=== PATIENT | female | born 1985 | race Caucasian/White ===

== ENCOUNTER 2016-07-27 11:16 | Emergency (ER) | payer MEDICAID ==
[2016-07-27] MEDS ORDERED: HYDROmorphone HCL 1 MG/ML DISP.SYRIN IM ONE (11:52)
--- NOTE | 2016-07-27 11:59 | ERNOTE ---
ER Female HPI Stated Complaint: KIDNEY STONE Time Seen by Provider: 07/27/16 11:39 Immunizations: IMMUNIZATION HX Immunizations Up to Date Yes History of Influenza Vaccine Yes Hx Pneumococcal Vaccination No Allergies/Adverse Reactions: Allergies NSAIDS (Non-Steroidal Anti-Inflamma Allergy (Verified 07/27/16 11:38) STOMACH PROBLEMS tramadol Allergy (Verified 07/27/16 11:38) VOMITING, HEADACHE Home Medications: HOME MEDICATIONS ALPRAZolam [Xanax] 1 mg PO TID PRN 02/13/14 [Last Taken 07/17/14] Albuterol Sulfate [Ventolin Hfa] 2 puff IH Q4H PRN 02/13/14 [Last Taken Unknown] Desogestrel-Ethinyl Estradiol [Desogen] 1 each PO DAILY 02/13/14 [Last Taken ] SUMAtriptan SUCCINATE [Imitrex] 100 mg PO Q2H PRN 02/13/14 [Last Taken Unknown] Diphenoxylate HCl/Atropine [Lomotil Tablet] 2 each PO QID 07/13/14 [Last Taken 07/17/14] Omeprazole [Prilosec] 20 mg PO DAILY 08/21/14 [Last Taken Unknown] oxyCODONE HCL/ACETAMINOPHEN [Percocet 5 MG/325 MG] 1 tab PO Q4H PRN #30 tablet 08/21/14 [Last Taken Unknown] inFLIXimab [Remicade (INFLIXIMAB)] 100 mg IV Q60D 09/21/14 [Last Taken Unknown] Fluticasone Propionate [Flonase] 2 spray NS DAILY 11/22/15 [Last Taken Unknown] Ondansetron HCl [Zofran] 4 mg PO BID PRN 11/22/15 [Last Taken Unknown] Promethazine HCl [Phenergan Suppository] 25 mg RC Q6H PRN #20 supp.rect [Last Taken Unknown] Promethazine HCl [Phenergan (Promethazine)] 25 mg PO Q6H PRN #30 tablet [Last Taken Unknown] Loperamide HCl [Imodium] 2 mg PO PRN 07/27/16 [Last Taken Unknown] Tamsulosin HCl [Flomax] 0.4 mg PO DAILY@1800 #7 capsule 07/27/16 [Last Taken Unknown] - History of Present Illness Narrative: Patient presents with an exacerbation of her left flank kidney stone pain. She has a known kidney stone and has a office visit with urology in 3 days. Patient states because of her Crohn's disease that she cannot take any NSAIDs as it causes bleeding in the intestine. Timing: Present: constant Quality: Present: severe, cramping Onset Location: Present: left flank Radiation: Present: LLQ Activities at Onset: Present: none Prior Abdominal Problems: Present: other - kidney stone and renal colic Modifying Factors - (Improves): Present: analgesics Associated Symptoms: Present: denies symptoms Prior Treatment: Present: recently seen, treated by physician Review of Systems - Review of Systems Constitutional: Present: See HPI EYE: Present: no symptoms reported ENT: Present: no symptoms reported Respiratory: Present: no symptoms reported Cardiology: Present: no symptoms reported Gastrointestinal/Abdominal: Present: no symptoms reported Genitourinary: Present: other - left flank pain Musculoskeletal: Present: no symptoms reported Skin: Present: no symptoms reported Neurological: Present: no symptoms reported Endocrine: Present: no symptoms reported Hematologic/Lymphatic: Present: no symptoms reported Psych: Present: no symptoms reported - Patient's Past Medical History Patient History - Medical: Anxiety, Chronic Pain, Kidney stone, UTI'S, Other - Crohn's Disease Patient History - Cardiac/Respiratory: No pertinent hx Patient History - Cancer: No Hx of Cancer Patient History - Surgical Procedures: Colonoscopy, , EGD, Ear Tubes, T & A, Other Patient History - Other: None LMP (Calendar): 06/16/14 - Social History Living Situations: alone Abuse History: No History of abuse Psych History: Hx of Anxiety Smoking Status: Former smoker Have you smoked in the past 12 months: No Alcohol Use: rarely Drug Use: none - Immunizations Immunizations Up to Date: Yes Hx Pneumococcal Vaccination: No History of Influenza Vaccine: Yes Physical Exam - Physical Exam General Appearance: Present: wd/wn, alert, severe distress Eye Exam: Normal inspection: bilateral, PERRL: bilateral Ears, Nose, Throat: Present: normal ENT inspection, H, normal pharynx Neck: Present: normal inspection, nontender Respiratory: Present: no respiratory distress, normal breath sounds, no accessory muscle use, chest nontender, lungs clear Cardiovascular/Chest: Present: regular rate, rhythm, no murmur, normal peripheral pulses Gastrointestinal/Abdominal: Present: normal bowel sounds, nontender, nondistended, soft, no organomegaly Rectal Exam: Present: deferred Back Exam: Present: normal range of motion, CVA tenderness (L) Extremity Exam: Present: normal inspection, non-tender, no edema, normal range of motion Neurological Exam: Present: alert, oriented, normal mood/affect Skin Exam: Present: normal color, warm/dry Lymphatic Exam: Present: no adenopathy ED Progress - Results and Orders Patient's Lab Results:: I have reviewed the patient's lab results. - Vital Signs Patient's Vital Signs:: I have reviewed the patient's vital signs. Vital Signs: Vital Signs 07/27/16 11:32 Temperature 36.7 C Pulse Rate 92 Respiratory 14 Rate Blood Pressure 150/83 O2 Sat by Pulse 98 Oximetry - Progress/Reassessment Chief Complaint: Genitourinary Problem Progress:: Improved Plan - Plan Plan: Kateryna was always going to be a difficult patient to manage due to the underlying Crohn's disease. We'll provide her with a prescription for Flomax and she has Percocet at home already. She has appointment with urology in 3 days which she agrees to keep. She has requested several days off to help manage the pain at home and we will assist her in that. She is discharged in stable condition Departure Clinical Impression: Renal colic on left side Crohn disease Qualifiers: Gastrointestinal tract location: unspecified location Digestive disease complication type: without complication Qualified Code(s): K50.90 - Crohn's disease, unspecified, without complications - Departure Disposition: Home self-care Condition: Good Instructions: Renal Colic, Bklw-on-Bpst, Crohn Disease Referrals: Prince Gauthier DO [Primary Care Provider] - Prescriptions: Tamsulosin HCl [Flomax] 0.4 mg PO DAILY@1800 #7 capsule
[2016-07-27] MEDS ORDERED: HYDROmorphone HCL 1 MG/ML DISP.SYRIN ONE (12:07)
--- OUTSIDE RECORDS SUMMARY | 2016-07-27 12:11 | XMS REPORT | Continuity of Care Document ---
:1985 Author Organization [facility] ([facility]) Address [address] [place] [address] Phone [phone] Care Team Providers Name Role Phone Prince Gauthier Primary Care Provider [phone] Source Comments This disclosure is being made pursuant to the Care Everywhere program, applicable federal and state laws, and may not contain all informaitonavailable regarding this patient.[facility] ([facility]) Active Allergies and Adverse Reactions Allergen Noted Date Severity Reactions Comments Hydrocodone-Acetaminophen 08/20/2015 Nausea & Vomiting Nsaids (Non-Steroidal 02/20/2015 Nausea & Vomiting Anti-Inflammatory Drug) Tramadol 08/20/2015 Nausea & Vomiting Current Medications Prescription Sig. Disp. Refills Start End Date Status Date albuterol 90 Use 2 Puffs by Active mcg/Actuation inhalation every 6 inhaler hours as needed. desogestrel-ethiny Take 1 Tab by Active l estradiol mouth daily. (DESOGEN) tablet SUMAtriptan 100 mg Take 100 mg by Active tablet mouth daily as needed. May repeat in 2 hours if needed. ALPRAZolam 1 mg Take 1 mg by mouth Active tablet 3 times daily. INFLIXIMAB Inject 5 mg/kg Active (REMICADE IV) intravenously. Every 7 weeks OXYCODONE-ACETAMIN Take 1 Tab by 0 Active OPHEN 5-325 mg per mouth as needed 5 tablet FLUTICASONE 50 Use 2 Sprays into 11 Active mcg/Actuation both nostrils 5 nasal spray daily acetaminophen 500 Take 1,000 mg by Active mg tablet mouth 2 times daily as needed. loperamide 2 mg Take 1-2 capsules 120 capsule 5 Active capsule (2-4 mg total) by 6 mouth 4 times daily as needed for Diarrhea. montelukast 10 mg Take 10 mg by 5 Active tablet mouth every 6 evening. promethazine 25 mg Take 1 tablet (25 90 tablet 5 Active tablet mg total) by mouth 7 3 times daily as needed. polyethylene Mix with Gatorade 510 g 0 Active glycol 3350 as directed per 7 (MIRALAX) 17 prep instructions gram/dose powder 1 day prior to procedure baclofen 20 mg Take 1 tablet (20 90 tablet 3 Active tablet mg total) by mouth 7 3 times daily as needed. lidocaine 5 % Apply 1 35 g 3 Active ointment application 7 topically as needed. colestipol 1 gram Take 1 tablet (1 g 60 tablet 5 Active tablet total) by mouth 2 7 times daily. ondansetron 4 mg Take 1-2 tablets 15 tablet 5 Active tablet (4-8 mg total) by 7 mouth every 8 hours as needed. valACYclovir 500 Take 500 mg by Active mg tablet mouth 2 times 7 daily. Two BID for 3 days terconazole 0.8 % 1 Applicatorful as Active vaginal cream needed. 7 omeprazole 20 mg Take 20 mg by Active enteric coated mouth daily. 7 capsule diphenoxylate-atro Take 1-2 tablets 120 tablet 3 Active pine 2.5-0.025 mg by mouth 4 times 7 per tablet daily as needed. diphenoxylate-atro Take 1-2 tablets 120 tablet 3 07/07/19 Discontinued pine 2.5-0.025 mg by mouth 4 times 6 17 per tablet daily as needed. Active Problems Problem Noted Date High risk medication use 02/15/2015 Crohn's disease 08/11/2014 Overview: Formatting of this note may be different from the original. Crohn's Disease Assessment and Quality Measures: 1. Disease phenotype: Crohn's disease diagnosed in 2014 at age 28. Disease involving the ileum. Surgical history: none. [place] Classification: A2 L1 B1 2. Genetics/Markers: Fhx of IBD: maternal aunt with Crohn's disease. Fhx of CRC: none. Fhx of Celiac Dz: none. Serology/Genotype hx: none. 3. Medication History: Use of corticosteroid sparing therapy: Yes - currently on Infliximab. Trial of Budesonide when initially diagnosed in 09/2013, discontinued due to lock jaw and bulging eyes Trial of Azathioprine from 09/2013 - 10/2013, discontinued due to nausea Trial of 6-Mercaptopurine from 10/2013 - 11/2013, discontinued due to nausea Trial of Adalimumab from 11/2013 - 07/2014, discontinued due to lack of response with biweekly dosing (low trough and no antibodies) and insurance would not approve weekly dosing Started Infliximab infusions at 5 mg/kg on 07/2014 Increased Infliximab dose to 7 mg/kg on 09/2014 due to incomplete reponse Trial of Hydrocortef infusion pre-med on 10/2014 to prevent antibody formation and post-infusion rash, discontinued after one infusion due to post- infusion headache Increased Infliximab infusion frequency to every 6 weeks on 12/2014 Decreased Infiximab infusion frequency to every 7 weeks on 03/2015. Positive C diff screen on 12/2015 requiring 2 rounds of Vancomycin. Infliximab infusion increased to 10 mg/kg and infusion speed cut in half due to possible adverse reactions (flushing and nausea). NSAID use: no - knows to avoid NSAIDs, currently taking oxycodone PRN basis (family medicine provider). Laboratory monitoring arranged if on immune modulator: Yes - No results found for: [id number], [id number] Lab Results Component Value Date/Time INFLIXIMAB ACTIVITY 27.42 03/10/2016 10:48 AM INFLIXIMAB NEUTRALIZING ANTIBODY TITER Not Detected 03/10/2016 10:48 AM 4. Extra Intestinal Manifestations: Pruritic rash on posterior upper and lower extremities that develops just prior to her flares. 5. Last Colonoscopy: 02/2015: Healing terminal ileum mucosa with very mild inflammation, normal colon and rectum, no granulomas or dysplasia noted. 6. Last Small Bowel Imagin06/2014, CT enterography: subacute to mildly active Crohn's disease involving the TI and hepatomegaly noted. 02/2013, small bowel series: negative. 7. Last Ultrasound: 08/2013, RUQ US: outside study showed fatty liver, no gallstones, and limited view of the pancreas 8. Last EGD: 01/2013: outside study showed mild gastritis and small sliding hiatal hernia. Biopsies showed minimal chronic inflammation with erosive features of the antrum and no significant pathologic changesin the duodenum. 9. Thiopurine & Biologic Pre-Treatment Testing: TPMT Enzyme Activity Tested: Yes - see below. TB Testing: Yes - see below. Lab Results Component Value Date/Time THIOPURINE METHYLTRANSFERASE 29.0 10/18/2013 09:35 AM QUANTIFERON-TB GOLD Negative 12/06/2013 03:33 PM HEP B SURFACE ANTIGEN Negative 12/06/2013 03:33 PM HEP B SURFACE AB, QUANTITATIVE <3.5 12/06/2013 03:33 PM HEP B SURFACE AB, QUALITATIVE Non Reactive* 12/06/2013 03:33 PM HEP B CORE ABS TOTAL (IGG & IGM) Negative 12/06/2013 03:33 PM HEPATITIS C VIRUS ANTIBODY Negative 12/06/2013 03:33 PM 10. Celiac Disease Serology: Lab Results Component Value Date/Time TTG IGA, QUANTITATIVE <0.5 10/18/2013 09:35 AM 11. Nutrition: Lab Results Component Value Date/Time VITAMIN B12 248 01/08/2016 12:20 PM VITAMIN D, 25-OH 33 01/08/2016 12:20 PM ALBUMIN 3.7 05/08/2016 12:08 PM HEMOGLOBIN 13.1 05/08/2016 12:08 PM IRON, BLOOD 153* 03/10/2016 10:48 AM TRANSFERRIN 349 03/10/2016 10:48 AM IRON % SATURATION 31 03/10/2016 10:48 AM FERRITIN 128.6 03/10/2016 10:48 AM SOLUBLE TRANSFERRIN RECEPTOR 2.3 03/10/2016 10:48 AM TRANSFERRIN RECEPTOR-FERRITIN INDEX 1.1 03/10/2016 10:48 AM 12. Tobacco Usage: Cessation discussion this visit: Not Applicable History Smoking status Never Smoker Smokeless tobacco Never Used 13. IBD Related Health Maintenance: Surveillance Colonoscopy: Next due now due to change in bowel habit unexplained by eradication of C diff and appropriate Infliximab levels. Risk Factor Score: 0 Last Bone Density Test: none. Last Pap Smear: abnormal pap on 03/2014, LEEP in 06/2014 normal, 2 subsequent normal colposcopies, paps every 6 months Annual Skin Exams: No - derm referral placed today. PHQ-2 Score: Positive. Pt has been encouraged to discuss this with her PCP. Immunizations: -- Counseled on the use of live vaccines: yes -- Chickenpox/Varicella infection or immunization: yes - Childhood infection No results found for: VZSCQNT -- Influenza vaccination or recommendation: Unknown -- PCV13 vaccination or recommendation: Vaccinated - per pt. -- PPSV23 vaccination or recommendation: Vaccinated - per pt. Immunization History Administered Date(s) Administered Influenza, unspecified 12/27/2014 Pneumococcal, unspecified 12/27/2014 14. Other: Hx of C. Diff: yes - 12/2015 requiring two 14-day courses of Vancomycin. Hx of DVT: none. Hx of Lymphoma: none. Hx of Nephrolithiasis: yes - 2014 with stent placement. Hx of Cholelithiasis: none. 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) 07/04/2016 Refill Med GI/Hepatology Mk Clarke Dx: Diarrhea (Primary Dx) 06/27/2016 Orders Only Med GI/Hepatology Mavis Don ARNP 06/19/2016 Office Visit Med GI/Hepatology Manuel Oneal Dx: Crohn's disease of small intestine Ismael, with other Hema Pinon PA-C complication (Primary Dx) 06/06/2016 Office Visit [facility] Hema Oneal Dx: Crohn's darcy Tipton PA-C of small intestine with other complication (Primary Dx) 06/04/2016 [facility] Med GI/Hepatology [facility], Subj: Appointment Encounter MD Galo Canceled 05/28/2016 Hospital Radiology Subj: Appointment Encounter Scheduled 05/28/2016 Office Visit Anesthesiology John Alarcon, Dx: Chronic left shoulder pain 2, Pain Clinic (Primary Dx) Provider 05/13/2016 Office Visit Anesthesiology 2, Pain Clinic Subj: Appointment Provider Scheduled 05/08/2016 Office Visit Pathology Manuel Oneal, Dx: Crohn's disease involving terminal Lab Services, Irl ileum 05/08/2016 Orders Only Pathology Garrett Chaparro Dx: Crohn's disease J involving terminal ileum 05/05/2016 Office Visit Med GI/Hepatology Manuel Oneal, Dx: Crohn's disease involving terminal Guevara, ileum (Primary Dx) Hema Pinon PA-C 05/05/2016 Telephone Med GI/Hepatology Mk Clarke Chief Comp: Need Prior Authorization Immunizations Name Dates Previously Given Next Due Hepatitis B, adult 12/27/2013 Hepatitis B, pediatric/adolescent 04/26/2014 Influenza, unspecified 12/27/2014 Pneumococcal Conjugate, PCV13 (Prevnar 13) 12/27/2014 Pneumococcal Polysaccharide, PPSV23 (Pneumovax 23) 12/27/2013 Social History Tobacco Use Types Packs/Day Years Used Date Never Smoker Smokeless Tobacco: Never Used Tobacco Cessation:Counseling Given: Yes Comments: Alcohol Use Drinks/Week oz/Week Comments No 1 Standard drinks or equivalent 0.5 rare Last Filed Vital Signs Vital Sign Reading Time Taken Blood Pressure 106/72 07/25/2016 12:15 PM CDT Pulse 82 07/25/2016 9:52 AM CDT Temperature 36.9 C (98.4 F) 07/25/2016 9:52 AM CDT Respiratory Rate 16 07/25/2016 12:15 PM CDT Height 1.651 m (5' 5") 07/25/2016 9:52 AM CDT Weight 135.1 kg (297 lb 13.5 oz) 07/25/2016 9:52 AM CDT Body Mass Index 49.56 07/25/2016 9:52 AM CDT Oxygen Saturation 100% 06/06/2016 10: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 Plan of Care Date Type Specialty Providers Description 08/06/2016 Hospital Encounter Med GI/Hepatology Fox, Subj: Appointment MD Ye Scheduled [address] [place] [address] [phone] (Fax) 08/19/2016 Appointment Med GI/Hepatology Manuel Oneal MD [address] [place] [address] [phone] (Fax) Subj: Appointment Hema Guevara PA-C [address] [place] [address] [phone] (Fax) Scheduled 08/28/2016 Appointment Anesthesiology 1, Pain Clinic Subj: Appointment Provider Scheduled 09/03/2016 Appointment [facility] Manuel Oneal, Subj: Appointment MD Scheduled [address] [place] [address] [phone] (Fax) Health Maintenance Due Date Last Done Comments Tdap Vaccine 09/04/1994 Lipid Disorder Screening 09/04/2001 MMR Vaccine 09/04/2001 Td Vaccine 09/04/2001 Varicella Vaccine (1 of 2 - Adult - No 09/04/2001 Evidence of Immunity) Cervical Cancer Screening 09/04/2013 Hepatitis B Vaccine (3 of 3 - Primary 06/21/2014 04/26/2014, 12/27/2013 Series) Influenza Vaccine: Seasonal (Season Ended) 2016 12/27/2014 Results from Last 3 Months PAIN SUPRASCAPULAR NERVE (05/28/2016 12:18 PM) Narrative John Alarcon MD 05/28/20161:07 PM ANE PAIN Procedure Note Procedure Date: 05/28/2016 Consent Obtained: After reviewing the potential risks and benefits as well as the performance of the procedure with the patient, an informed written consent was obtained. Pre-operative Diagnosis: Left shoulder pain Post-operative Diagnosis: Left shoulder pain Attending Staff: John Alarcon MD Resident/Fellow: Jeremias Gomez DO Indications: Left shoulder pain PAIN SUPRASCAPULAR NERVE Left suprascapular nerve block The patient was placed in a prone position. The patient was monitored using electrocardiogram, noninvasive blood pressure and pulse oximeter. The skin was prepped with chloraprep, and sterile drapes were applied. The left suprascapular notch was identified under fluoroscopy. A skin wheal was created using 1 cc of 1% lidocaine. A 22-gauge, 3.5 inch needle was then advanced toward the suprascapular notch until it hit bone. 0.5 cc of omnipaque 300 was injected following negative aspiration for heme or air. The notch and spine of the scapula was outlined. Then, A total of 2cc of 0.50% Bupivacaine with 10mg of Dexamethasone was injected, then needle was removed. The patient was discharged in stable condition Pre-procedure pain score: 7 Post-procedure pain score: 5 Photographs: in [facility] Complications: The patient did not experience any complications. Teaching Statement: John Alvarez MD was present for the entire procedure I was present for the entire procedure. John Alarcon MD [facility] Clinical Cylinder Die Machine Helper Department of Anesthesia, Division of Chronic Pain Management Pager [phone] PANCREATIC ELASTASE, MONOCLONAL (05/08/2016 12:15 PM) Component Value Range Pancreatic Elastase, Monoclonal >500Comment: >200 mcg PE1/g stool In [facility], find scanned test results by clicking the Results Document hyperlink on the Order Report. For [facility] user the scan result report is not available, please contact physician for details. Specimen Stool CALPROTECTIN, FECAL (05/08/2016 12:15 PM) Component Value Range Calprotectin, Fecal 36Comment: <=50 ug/g INTERPRETIVE INFORMATION: Calprotectin, Fecal 50 ug/g or less: Normal 51-120 ug/g: Borderline elevated, test should be re-evaluated in 4-6 weeks. 121 ug/g or greater: Abnormal Performed by [facility], [address] [place] [id number] [email or web address], Praful Womack MD, Lab. Director Specimen Stool Narrative Source: STOOL Client Accession number: [id number] C. DIFFICILE TOXIN SCREEN (05/08/2016 12:15 PM) Component Value Range C. Difficle GDH Negative Negative C. Difficile Toxin NegativeComment: Negative Negative for the presence of C. difficile and C. difficile toxin. Specimen Stool DIFFERENTIAL (05/08/2016 12:08 PM) Component Value Range % Neutrophils-Auto Diff 44.5 % Neutrophils-Auto Diff 3060 6936-8577 /MM3 % Lymphocytes-Auto Diff 45.5 % Lymphocytes-Auto Diff 3130 875-3300 /MM3 % Monocytes-Auto Diff 7.6 % Monocytes-Auto Diff 520 130-860 /MM3 % Eosinophils-Auto Diff 1.7 % Eosinophils-Auto Diff 120 40-390 /MM3 % Basophils 0.6 % Basophils-Auto Diff 40 10-136 /MM3 % Immature Granulocytes-Auto Diff 0.1 % Immature Granulocytes-Auto Diff 10 /MM3 Specimen Whole Blood CBC (COMPLETE BLOOD COUNT) (05/08/2016 12:08 PM) Component Value Range WBC Count 6.9 3.7-10.5 K/MM3 RBC Count 4.28 4.00-5.20 M/MM3 Hemoglobin 13.1 11.9-15.5 g/dL Hematocrit 40 35-47 % MCV (Mean Corpuscular Volume) 94 82-99 FL MCH (Mean Corpuscular Hemoglobin) 31 25-35 PG MCHC (Mean Corpuscular Hemoglobin Concentration) 32 32-36 % Platelet Count 319 150-400 K/MM3 MPV (Mean Platelet Volume) 9.2(L) 9.4-12.3 FL RBC Dist Width-STD 40.9 36.4-46.3 FL RBC Distrib Width 12.1 9.0-14.5 % Specimen Whole Blood TRYPTASE, TOTAL (05/08/2016 12:08 PM) Component Value Range Tryptase 4.5Comment: <=10.9 ug/L Performed by [facility], [address] [place] [phone] [email or web address], Praful Womack MD, Lab. Director Specimen Blood Narrative Source: BLOOD Client Accession number: [id number] C-REACTIVE PROTEIN (05/08/2016 12:08 PM) Component Value Range CRP (C-Reactive Protein) 0.7(H) <=0.5 mg/dL Specimen Blood ERYTHROCYTE SEDIMENTATION RATE (05/08/2016 12:08 PM) Component Value Range ESR (Erythrocyte Sedimentation Rate) 14 0-20 mm/Hr Specimen Whole Blood HEPATIC FUNCTION PANEL (05/08/2016 12:08 PM) Component Value Range Albumin 3.7 3.4-4.8 g/dL ALP 54 35-104 U/L Bilirubin Total 0.3 <=1.2 mg/dL Bilirubin, Direct <0.2 0.0-0.2 mg/dL AST 15Comment: 0-32 U/L Adult reference ranges updated on 02/22/13 at 830am ALT 12Comment: 0-33 U/L The upper limit of normal for alanine aminotransferase (ALT) reference ranges for adults is controversial with some authorities recommending limit as low as 30 U/L for males and 19 U/L for females. Th ere is increased incidence of subclinical liver disease (e.g., early steatohepatitis) in patients with ALT values in the range of 31-41 U/L for males and 20-33 U/L for females. ALT values should alway s be interpreted in conjunction with clinical history, physical examination findings, and, if applicable, data from other diagnostic tests. Total Protein 7.0 6.0-8.0 g/dL Specimen Blood CBC WITH DIFFERENTIAL (05/08/2016 12:08 PM) Specimen Whole Blood Narrative The following orders were created for panel order CBC WITH DIFFERENTIAL. Procedure Abnormality Status --------- ------ CBC (COMPLETE BLOOD COUNT)[[id number]] AbnormalFinal result DIFFERENTIAL[[id number]] Final result Please view results for these tests on the individual orders.
[2016-07-27 12:27] LABS: Urine Bilirubin Negative (NEGATIVE); Urine Blood 250 /ul (NEGATIVE); Urine Ketone Negative (NEGATIVE); Urine Nitrite Negative (NEGATIVE); Urine Protein Negative (NEGATIVE); Urine Specific Gravity >=1.030 SP.GR. (1.005-1.010); Urine Urobilinogen Normal (NORMAL)
[2016-07-27 12:46] LABS: Urine Appearance Clear; Urine Bacteria None Seen; Urine Color Yellow; Urine RBC 0-5 /hpf (0-5); Urine WBC None Seen /hpf (0-5)
[2016-07-27 12:56] VITALS: BP 167/80
== END 2016-07-27 13:00 | disposition home or self-care (01) ==
LOC: ER 11:16
DX: N23 Unspecified renal colic (principal); K50.90 Crohn's disease, unspecified, without complications; F41.9 Anxiety disorder, unspecified

== ENCOUNTER 2016-10-02 11:13 | Emergency (ER) | payer MEDICAID ==
[2016-10-02 11:49] LABS: Hematocrit 36.7 % (37.0-47.0); Hemoglobin 12.5 gm/dL (12.5-16.0); Mean Cell Volume 90.6 fl (78-100); Mean Corpuscular Hemoglobin 30.9 pg (27-31); Mean Corpuscular Hgb Conc 34.1 g/dl (32-36); Mean Platelet Volume 8.8 fl (6.0-9.5); Neutrophil # 2.8 K/mm3 (1.3-6.0); Neutrophil % 40.7 % (42-75.0); Platelet Count 370 K/mm3 (150-450); Red Blood Count 4.05 M/mm3 (4.2-5.4); White Blood Count 6.8 K/mm3 (4.0-10.5)
[2016-10-02 11:58] LABS: Prothrombin Time (Patient) 9.9 Seconds (9.4-11.4)
[2016-10-02 12:00] LABS: Albumin * 3.2 gm/dl (3.4-5.0); Anion Gap 15.1 mmol/L (6.8-13.8); BUN/Creatinine Ratio 13.8 (9.0-21.6); Bilirubin, Total 0.2 mg/dL (0.0-1.1); Ca. Corrected For Albumin 9.1 mg/dL (8.4-10.2); Calcium * 8.8 mg/dL (7.9-10.9); Carbon Dioxide 25.6 mmol/L (24-32.6); Potassium 3.7 mmol/L (3.4-4.6); Total Protein 7.3 gm/dL (6.2-8.2)
[2016-10-02 12:02] LABS: INR 0.95 INR (0.90-1.10)
[2016-10-02] MEDS ORDERED: LIDOCAINE HCL 10 APPL CARTRIDGE TP ONE (12:24)
[2016-10-02] MEDS ORDERED: LIDOCAINE HCL 10 APPL CARTRIDGE ONE (12:35)
--- NOTE | 2016-10-02 12:54 | ERNOTE ---
GI Bleeding/Rectal Pain ER Date of Service: 10/02/16 Time Seen by Provider: 10/02/16 12:14 Immunizations: IMMUNIZATION HX Immunizations Up to Date Yes History of Influenza Vaccine No Hx Pneumococcal Vaccination No Allergies/Adverse Reactions: Allergies NSAIDS (Non-Steroidal Anti-Inflamma Allergy (Verified 10/02/16 11:29) STOMACH PROBLEMS tramadol Allergy (Verified 10/02/16 11:29) VOMITING, HEADACHE Home Medications: HOME MEDICATIONS ALPRAZolam [Xanax] 1 mg PO TID PRN 02/13/14 [Last Taken 07/17/14] Albuterol Sulfate [Ventolin Hfa] 2 puff IH Q4H PRN 02/13/14 [Last Taken Unknown] Desogestrel-Ethinyl Estradiol [Desogen] 1 each PO DAILY 02/13/14 [Last Taken ] SUMAtriptan SUCCINATE [Imitrex] 100 mg PO Q2H PRN 02/13/14 [Last Taken Unknown] Diphenoxylate HCl/Atropine [Lomotil Tablet] 2 each PO QID 07/13/14 [Last Taken 07/17/14] Omeprazole [Prilosec] 20 mg PO DAILY 08/21/14 [Last Taken Unknown] oxyCODONE HCL/ACETAMINOPHEN [Percocet 5 MG/325 MG] 1 tab PO Q4H PRN #30 tablet 08/21/14 [Last Taken Unknown] inFLIXimab [Remicade (INFLIXIMAB)] 100 mg IV Q60D 09/21/14 [Last Taken Unknown] Fluticasone Propionate [Flonase] 2 spray NS DAILY 11/22/15 [Last Taken Unknown] Ondansetron HCl [Zofran] 4 mg PO BID PRN 11/22/15 [Last Taken Unknown] Promethazine HCl [Phenergan Suppository] 25 mg RC Q6H PRN #20 supp.rect [Last Taken Unknown] Promethazine HCl [Phenergan (Promethazine)] 25 mg PO Q6H PRN #30 tablet [Last Taken Unknown] Loperamide HCl [Imodium] 2 mg PO PRN 07/27/16 [Last Taken Unknown] Tamsulosin HCl [Flomax] 0.4 mg PO DAILY@1800 #7 capsule 04/30/17 [Last Taken Unknown] Docusate Sodium [Colace] 100 mg PO DAILY #30 cap 10/02/16 [Last Taken Unknown] Hydrocortisone Acetate [Anusol Hc Suppository] 25 mg RC BID #28 supp.rect [Last Taken Unknown] Lidocaine HCl [Lidocaine Jelly] 1 appl RC QID #2 cartridge 10/02/16 [Last Taken Unknown] Narrative: Pt. comes ion with c/o rectal bleeding after she had a BM this morning. Pt. denies any SOB, CP, NVD, fever, recent illness, abd pain, alleviating factors but states tath movement exacerbates the pain. Pt. has a a history of this previously but has been diagnosed differently each time so she unsure if it is her chrohn's disease, hemorrhoids, and an anal fissure. Review of Systems - Review of Systems Constitutional: Present: no symptoms reported. Absent: recent illness, fever, chills, weakness, fatigue, malaise EYE: Present: no symptoms reported ENT: Present: no symptoms reported Respiratory: Present: no symptoms reported. Absent: shortness of breath, cough , wheezing Cardiology: Present: no symptoms reported. Absent: chest pain, palpitations, edema Gastrointestinal/Abdominal: Present: other - rectal pain and bleeding. Absent: nausea, vomiting, diarrhea Genitourinary: Present: no symptoms reported Musculoskeletal: Present: no symptoms reported. Absent: back pain, joint pain Skin: Present: no symptoms reported. Absent: rash, change in color Neurological: Present: no symptoms reported. Absent: headache, dizziness/light- headedness, numbness, tingling Endocrine: Present: no symptoms reported Hematologic/Lymphatic: Present: no symptoms reported - Patient's Past Medical History Patient History - Medical: Anxiety, Chronic Pain, Kidney stone, UTI'S, Other Patient History - Cardiac/Respiratory: No pertinent hx Patient History - Cancer: No Hx of Cancer Patient History - Surgical Procedures: Colonoscopy, , EGD, Ear Tubes, Total Knee Replacement, T & A, Other Patient History - Other: None LMP (females 10-50): 3 weeks LMP (Calendar): 09/10/16 - Social History Living Situations: home Abuse History: No History of abuse Psych History: Hx of Anxiety Alcohol Use: rarely Drug Use: none - Immunizations Immunizations Up to Date: Yes Hx Pneumococcal Vaccination: No History of Influenza Vaccine: No Physical Exam - Physical Exam General Appearance: Present: wd/wn, alert, no apparent distress Eye Exam: Normal inspection: bilateral, PERRL: bilateral, EOMI: bilateral Respiratory: Present: no respiratory distress, normal breath sounds, no accessory muscle use, chest nontender, lungs clear Cardiovascular/Chest: Present: regular rate, rhythm, no murmur, normal peripheral pulses Rectal Exam: Present: tenderness, hemorrhoids - posterior skin tag Back Exam: Present: normal inspection Extremity Exam: Present: normal inspection, non-tender, normal range of motion, no edema Neurological Exam: Present: alert, oriented, normal mood/affect, no motor/ sensory deficits ED Progress - Date and Time Seen: Date and Time: 10/02/16 12:[address] Barry and he recommends steroidal suppositories, stool softeners, and marcaine jelly and she is to follow up with Dr Blakely next week. - Vital Signs Vital Signs: Vital Signs 10/02/16 10/02/16 11:26 12:00 Temperature 36.4 C L Pulse Rate 96 98 Respiratory 16 16 Rate Blood Pressure 153/92 152/80 O2 Sat by Pulse 97 97 Oximetry - Progress/Reassessment Chief Complaint: GI Bleed Departure Clinical Impression: Anal fissure Hemorrhoids Qualifiers: Hemorrhoid type: residual hemorrhoidal skin tags Qualified Code(s): K64.4 - Residual hemorrhoidal skin tags - Departure Disposition: Home self-care Condition: Good Instructions: Hemorrhoids, [id number], Anal Fissure, Adult, [id number], How to Take a Sitz Bath Additional Instructions: Please follow up with Dr Reed early next week for appointment. Referrals: Prince Gauthier DO [Primary Care Provider] - Prescriptions: Docusate Sodium [Colace] 100 mg PO DAILY #30 cap Hydrocortisone Acetate [Anusol Hc Suppository] 25 mg RC BID #28 supp.rect Lidocaine HCl [Lidocaine Jelly] 1 appl RC QID #2 cartridge
[2016-10-02 14:15] VITALS: BP 156/81
== END 2016-10-02 13:07 | disposition home or self-care (01) ==
LOC: ER 11:13
DX: K64.4 Residual hemorrhoidal skin tags (principal); K60.0 Acute anal fissure

== ENCOUNTER 2017-01-16 17:15 | Emergency (ER) | payer MEDICAID ==
[2017-01-16] MEDS ORDERED: ONDANSETRON HCL/PF 2 MG/ML VIAL IV ONE (17:52)
[2017-01-16] MEDS ORDERED: NORMAL SALINE 1,000 ML IV ONE (17:53)
[2017-01-16 18:19] LABS: Hemoglobin 15.5 gm/dL (12.5-16.0); Mean Cell Volume 93.6 fl (78-100); Mean Corpuscular Hemoglobin 30.9 pg (27-31); Mean Platelet Volume 9.1 fl (6.0-9.5); Neutrophil % 61.1 % (42-75.0); Platelet Count 379 K/mm3 (150-450); Red Blood Count 5.02 M/mm3 (4.2-5.4); Red Cell Distribution Width 12.4 % (11.5-14.0); White Blood Count 11.5 K/mm3 (4.0-10.5)
[2017-01-16 18:39] LABS: BUN/Creatinine Ratio 11.4 (9.0-21.6); Bilirubin, Total 0.3 mg/dL (0.0-1.1); Ca. Corrected For Albumin 9.2 mg/dL (8.4-10.2); Calcium * 9.5 mg/dL (7.9-10.9); Carbon Dioxide 19.6 mmol/L (24-32.6); Potassium 3.6 mmol/L (3.4-4.6); Total Protein 8.8 gm/dL (6.2-8.2)
[2017-01-16 18:49] LABS: Urine Appearance Slightly Cloudy; Urine Bilirubin Negative (NEGATIVE); Urine Blood 250 /ul (NEGATIVE); Urine Color Yellow; Urine Ketone 15 mg/dL (NEGATIVE); Urine Nitrite Negative (NEGATIVE); Urine Protein Negative (NEGATIVE); Urine Urobilinogen Normal (NORMAL); Urine WBC 0-5 /hpf (0-5)
[2017-01-16 18:50] LABS: Urine Bacteria TRACE; Urine RBC TRACE /hpf (0-5)
[2017-01-16] MEDS ORDERED: ONDANSETRON 4 MG TAB.RAPDIS ONE (18:50)
[2017-01-16] MEDS ORDERED: ONDANSETRON 4 MG TAB.RAPDIS PO ONE (18:51)
--- NOTE | 2017-01-16 20:06 | ERNOTE ---
Medical Problem HPI - Narrative Date of Service: 01/16/17 - General Chief Complaint: Nausea/Vomiting Time Seen by Provider: 01/16/17 17:33 Source: patient Exam Limitations: no limitations - Immun/Allergies/Home Medications Immunizations: IMMUNIZATION HX Immunizations Up to Date Yes History of Influenza Vaccine No Hx Pneumococcal Vaccination No Allergies/Adverse Reactions: Allergies NSAIDS (Non-Steroidal Anti-Inflamma Allergy (Verified 01/16/17 17:25) STOMACH PROBLEMS tramadol Allergy (Verified 01/16/17 17:25) VOMITING, HEADACHE Home Medications: HOME MEDICATIONS ALPRAZolam [Xanax] 1 mg PO TID PRN 02/13/14 [Last Taken 07/17/14] Albuterol Sulfate [Ventolin Hfa] 2 puff IH Q4H PRN 02/13/14 [Last Taken Unknown] Desogestrel-Ethinyl Estradiol [Desogen] 1 each PO DAILY 02/13/14 [Last Taken ] SUMAtriptan SUCCINATE [Imitrex] 100 mg PO Q2H PRN 02/13/14 [Last Taken Unknown] Diphenoxylate HCl/Atropine [Lomotil Tablet] 2 each PO QID 07/13/14 [Last Taken 07/17/14] Omeprazole [Prilosec] 20 mg PO DAILY 08/21/14 [Last Taken Unknown] oxyCODONE HCL/ACETAMINOPHEN [Percocet 5 MG/325 MG] 1 tab PO Q4H PRN #30 tablet 08/21/14 [Last Taken Unknown] inFLIXimab [Remicade (INFLIXIMAB)] 100 mg IV Q60D 09/21/14 [Last Taken Unknown] Fluticasone Propionate [Flonase] 2 spray NS DAILY 11/22/15 [Last Taken Unknown] Ondansetron HCl [Zofran] 4 mg PO BID PRN 11/22/15 [Last Taken Unknown] Promethazine HCl [Phenergan Suppository] 25 mg RC Q6H PRN #20 supp.rect [Last Taken Unknown] Promethazine HCl [Phenergan (Promethazine)] 25 mg PO Q6H PRN #30 tablet [Last Taken Unknown] Loperamide HCl [Imodium] 2 mg PO PRN 07/27/16 [Last Taken Unknown] Tamsulosin HCl [Flomax] 0.4 mg PO DAILY@1800 #7 capsule 07/27/16 [Last Taken Unknown] Docusate Sodium [Colace] 100 mg PO DAILY #30 cap 10/02/16 [Last Taken Unknown] Hydrocortisone Acetate [Anusol Hc Suppository] 25 mg RC BID #28 supp.rect [Last Taken Unknown] Lidocaine HCl [Lidocaine Jelly] 1 appl RC QID #2 cartridge 10/02/16 [Last Taken Unknown] Dicyclomine HCl [Bentyl] 10 - 20 mg PO TID #80 tab 01/16/17 [Last Taken Unknown] - History of Present History Narrative: Pt. comes in with c/o abdominal pain diffuse, malaise, and nausea for a day. Pt. states that she has a remicade treatment in 3 days and is concerned that there is something wrong with her that will make her miss her treatment. Pt. denies any recent fevers, SOB, CP, diarrhea, alleviating factors despite taking Zofran. Timing: getting worse Modifying Factors - (Improves): Present: other - denies Modifying Factors - (Worsens): Present: other - denies Review of Systems - Review of Systems Constitutional: Present: malaise. Absent: fever, chills EYE: Present: no symptoms reported ENT: Present: no symptoms reported Respiratory: Present: no symptoms reported. Absent: shortness of breath, cough , wheezing Cardiology: Present: no symptoms reported. Absent: chest pain, palpitations, edema Gastrointestinal/Abdominal: Present: nausea, vomiting, abdominal pain. Absent: diarrhea Genitourinary: Present: no symptoms reported. Absent: frequency, pain, dysuria , decreased urinary output Musculoskeletal: Present: no symptoms reported. Absent: back pain Skin: Absent: rash Neurological: Present: no symptoms reported. Absent: headache, dizziness/light- headedness, numbness, tingling All Other Systems: All systems neg except as marked - Patient's Past Medical History Patient History - Medical: Anxiety, Chronic Pain, Kidney stone, UTI'S, Other - crohns Patient History - Cardiac/Respiratory: No pertinent hx Patient History - Cancer: No Hx of Cancer Patient History - Surgical Procedures: Colonoscopy, , EGD, Ear Tubes, T & A, Other Patient History - Other: None LMP (Calendar): 01/11/17 - Social History Living Situations: home Abuse History: No History of abuse Psych History: Hx of Anxiety Smoking Status: Never smoker Alcohol Use: rarely Drug Use: none - Immunizations Immunizations Up to Date: Yes Hx Pneumococcal Vaccination: No History of Influenza Vaccine: No Physical Exam - Physical Exam General Appearance: Present: wd/wn, alert, no apparent distress Head Exam: Present: normal inspection, no evidence of injury Eye Exam: Normal inspection: bilateral, PERRL: bilateral, EOMI: bilateral Ears, Nose, Throat: Present: normal ENT inspection, normal pharynx Neck: Present: normal inspection, nontender. Absent: lymphadenopathy (R), lymphadenopathy (L) Respiratory: Present: no respiratory distress, normal breath sounds, no accessory muscle use, chest nontender, lungs clear Cardiovascular/Chest: Present: regular rate, rhythm, no murmur, normal peripheral pulses Gastrointestinal/Abdominal: Present: normal bowel sounds, nontender - no pain with palpation, nondistended, soft, no organomegaly Back Exam: Present: normal inspection Extremity Exam: Present: normal inspection, non-tender, normal range of motion, no edema Neurological Exam: Present: alert, oriented, normal mood/affect, no motor/ sensory deficits Skin Exam: Present: normal color, warm/dry. Absent: pallor, skin rash ED Progress - Results and Orders Patient's Lab Results:: I have reviewed the patient's lab results. Results and Orders: Abnormal Lab Results 01/16/17 01/16/17 01/16/17 Range/Units 18:15 18:15 18:19 WBC 11.5 H (4.0-10.5) K/mm3 Neutrophils # 7.0 H (1.3-6.0) K/mm3 Lymphocytes # 3.8 H (1.5-3.5) k/mm3 Chloride 107 H (97-106) mmol/L Carbon Dioxide 19.6 L (24-32.6) mmol/L Anion Gap 16.0 H (6.8-13.8) mmol/L Total Protein 8.8 H (6.2-8.2) gm/dL Amylase 386 H (25-115) U/L Urine Blood 250 H (NEGATIVE) /ul Ur Leukocyte Esterase 75 H (NEGATIVE) /ul Ur Epithelial Cells >25 H (0-5) /hpf Pt. ios currently on period - Vital Signs Patient's Vital Signs:: I have reviewed the patient's vital signs. Vital Signs: Vital Signs 01/16/17 17:20 Temperature 36.4 C L Pulse Rate 72 Respiratory 16 Rate Blood Pressure 158/105 O2 Sat by Pulse 97 Oximetry - Progress/Reassessment Chief Complaint: Nausea/Vomiting Departure Clinical Impression: Crohn disease Qualifiers: Gastrointestinal tract location: unspecified location Digestive disease complication type: without complication Qualified Code(s): K50.90 - Crohn's disease, unspecified, without complications - Departure Disposition: Home self-care Condition: Good Instructions: Crohn Disease Additional Instructions: Please follow up with you primary provider for your remicade tx as planned. Referrals: Prince Gauthier DO [Primary Care Provider] - Prescriptions: Dicyclomine HCl [Bentyl] 10 - 20 mg PO TID #80 tab
[2017-01-16] MEDS ORDERED: DICYCLOMINE HCL 10 MG/ML AMPUL IM ONE ×2 (20:40→20:43)
[2017-01-16 20:51] VITALS: BP 162/108
== END 2017-01-16 20:52 | disposition home or self-care (01) ==
LOC: ER 17:15
DX: K50.90 Crohn's disease, unspecified, without complications (principal)

== ENCOUNTER 2017-01-17 16:54 | Emergency (ER) | payer MEDICAID ==
[2017-01-17] MEDS ORDERED: PROMETHAZINE HCL 25 MG in DEXTROSE 5 % IN WATER 50 ML IV ONE ×2 (17:14)
[2017-01-17] MEDS ORDERED: NORMAL SALINE 1,000 ML IV ONE (17:14)
[2017-01-17 17:26] LABS: Hematocrit 40.9 % (37.0-47.0); Mean Cell Volume 91.5 fl (78-100); Mean Corpuscular Hemoglobin 31.3 pg (27-31); Mean Corpuscular Hgb Conc 34.2 g/dl (32-36); Mean Platelet Volume 8.8 fl (6.0-9.5); Neutrophil # 4.6 K/mm3 (1.3-6.0); Neutrophil % 51.3 % (42-75.0); Platelet Count 358 K/mm3 (150-450); Red Blood Count 4.47 M/mm3 (4.2-5.4); Red Cell Distribution Width 12.3 % (11.5-14.0)
[2017-01-17 17:38] LABS: Albumin * 3.5 gm/dl (3.4-5.0); Anion Gap 16.2 mmol/L (6.8-13.8); BUN/Creatinine Ratio 10.6 (9.0-21.6); Bilirubin, Total 0.3 mg/dL (0.0-1.1); Ca. Corrected For Albumin 9.1 mg/dL (8.4-10.2); Carbon Dioxide 24.4 mmol/L (24-32.6); Potassium 3.6 mmol/L (3.4-4.6); Total Protein 7.7 gm/dL (6.2-8.2)
--- NOTE | 2017-01-17 18:48 | ERNOTE ---
Medical Problem HPI - Narrative Date of Service: 01/17/17 - General Chief Complaint: Nausea/Vomiting Time Seen by Provider: 01/17/17 17:04 Source: patient, RN notes reviewed, old records Exam Limitations: no limitations - Immun/Allergies/Home Medications Immunizations: IMMUNIZATION HX Immunizations Up to Date Yes History of Influenza Vaccine No Hx Pneumococcal Vaccination No Allergies/Adverse Reactions: Allergies NSAIDS (Non-Steroidal Anti-Inflamma Allergy (Verified 01/17/17 17:00) STOMACH PROBLEMS tramadol Allergy (Verified 01/17/17 17:00) VOMITING, HEADACHE Home Medications: HOME MEDICATIONS ALPRAZolam [Xanax] 1 mg PO TID PRN 02/13/14 [Last Taken 07/17/14] Albuterol Sulfate [Ventolin Hfa] 2 puff IH Q4H PRN 02/13/14 [Last Taken Unknown] Desogestrel-Ethinyl Estradiol [Desogen] 1 each PO DAILY 02/13/14 [Last Taken ] SUMAtriptan SUCCINATE [Imitrex] 100 mg PO Q2H PRN 02/13/14 [Last Taken Unknown] Diphenoxylate HCl/Atropine [Lomotil Tablet] 2 each PO QID 07/13/14 [Last Taken 07/17/14] Omeprazole [Prilosec] 20 mg PO DAILY 08/21/14 [Last Taken Unknown] oxyCODONE HCL/ACETAMINOPHEN [Percocet 5 MG/325 MG] 1 tab PO Q4H PRN #30 tablet 08/21/14 [Last Taken Unknown] inFLIXimab [Remicade (INFLIXIMAB)] 100 mg IV Q60D 09/21/14 [Last Taken Unknown] Fluticasone Propionate [Flonase] 2 spray NS DAILY 11/22/15 [Last Taken Unknown] Ondansetron HCl [Zofran] 4 mg PO BID PRN 11/22/15 [Last Taken Unknown] Promethazine HCl [Phenergan Suppository] 25 mg RC Q6H PRN #20 supp.rect [Last Taken Unknown] Promethazine HCl [Phenergan (Promethazine)] 25 mg PO Q6H PRN #30 tablet [Last Taken Unknown] Loperamide HCl [Imodium] 2 mg PO PRN PRN 07/27/16 [Last Taken Unknown] Tamsulosin HCl [Flomax] 0.4 mg PO DAILY@1800 #7 capsule 07/27/16 [Last Taken Unknown] Docusate Sodium [Colace] 100 mg PO DAILY #30 cap 10/02/16 [Last Taken Unknown] Hydrocortisone Acetate [Anusol Hc Suppository] 25 mg RC BID #28 supp.rect [Last Taken Unknown] Lidocaine HCl [Lidocaine Jelly] 1 appl RC QID #2 cartridge 10/02/16 [Last Taken Unknown] Dicyclomine HCl [Bentyl] 10 - 20 mg PO TID #80 tab 01/16/17 [Last Taken Unknown] - History of Present History Narrative: 31 year old female ambulatory to the ED for nausea and vomiting. She has not felt well all week. She began having severe nausea yesterday and was seen here last evening. Today she actually began vomiting. She is concerned that she is dehydrated. She is on Remicade for Chron's disease. She denies any sick contacts. Date (Duration): 01/16/17 Review of Systems - Review of Systems Constitutional: Present: fatigue, malaise. Absent: fever, chills EYE: Present: no symptoms reported ENT: Absent: nose congestion, sore throat Respiratory: Absent: shortness of breath, cough Cardiology: Absent: chest pain, palpitations, syncope Gastrointestinal/Abdominal: Present: nausea, vomiting, eating less, drinking less. Absent: diarrhea, constipation, abdominal pain Genitourinary: Absent: dysuria, decreased urinary output Musculoskeletal: Present: no symptoms reported Skin: Absent: rash, lesions Neurological: Present: dizziness/light-headedness. Absent: headache Endocrine: Present: no symptoms reported Hematologic/Lymphatic: Present: no symptoms reported Psych: Present: no symptoms reported - Patient's Past Medical History Patient History - Medical: Anxiety, Chronic Pain, Kidney stone, Obesity, UTI'S, Other - Chron's disease Patient History - Cardiac/Respiratory: No pertinent hx Patient History - Cancer: No Hx of Cancer Patient History - Surgical Procedures: Colonoscopy, , EGD, Ear Tubes, T & A, Other Patient History - Other: None - Social History Living Situations: home Abuse History: No History of abuse Psych History: Hx of Anxiety Alcohol Use: none Drug Use: none - Immunizations Immunizations Up to Date: Yes Hx Pneumococcal Vaccination: No History of Influenza Vaccine: No Physical Exam - Physical Exam General Appearance: Present: wd/wn, alert, mild distress, obese Head Exam: Present: normal inspection Neck: Present: normal inspection, nontender, supple Respiratory: Present: no respiratory distress, normal breath sounds, no accessory muscle use, lungs clear Cardiovascular/Chest: Present: regular rate, rhythm, no murmur, normal peripheral pulses Gastrointestinal/Abdominal: Present: normal bowel sounds, nondistended, soft, tenderness - Mild, diffuse Extremity Exam: Present: normal inspection, normal range of motion Neurological Exam: Present: alert, oriented, normal mood/affect, no motor/ sensory deficits Skin Exam: Present: normal color, warm/dry ED Progress - Results and Orders Patient's Lab Results:: I have reviewed the patient's lab results. - Vital Signs Patient's Vital Signs:: I have reviewed the patient's vital signs. Vital Signs: Vital Signs 01/17/17 01/17/17 01/17/17 16:56 17:00 17:57 Temperature 37.0 C 37.0 C Pulse Rate 85 85 81 Respiratory 12 12 13 Rate Blood Pressure 162/84 162/84 155/75 O2 Sat by Pulse 100 100 100 Oximetry - Progress/Reassessment Chief Complaint: Nausea/Vomiting Progress:: Improved Plan - Plan Plan: Patient reports feeling better after Phenergan IVPB and 1 L NS bolus. Has meds at home for n/v. Discussed expected course of illness and indications for needing f/u. Departure Clinical Impression: Nausea and vomiting Qualifiers: Vomiting type: unspecified Vomiting Intractability: non-intractable Qualified Code(s): R11.2 - Nausea with vomiting, unspecified - Departure Disposition: Home Follow Up Needed Condition: Stable Instructions: Nausea and Vomiting, Adult, [id number] Referrals: Prince Gauthier DO [Primary Care Provider] -
[2017-01-17 19:35] VITALS: BP 151/76
== END 2017-01-17 19:05 | disposition home or self-care (01) ==
LOC: ER 16:54
DX: R11.2 Nausea with vomiting, unspecified (principal)